=== PATIENT | female | born 1995 | race Caucasian/White ===

== ENCOUNTER 2017-08-31 14:54 | Emergency (ER) | payer BC ==
[2017-08-31] MEDS ORDERED: Ondansetron INJ* 2 MG/ML VIAL IV ONE (16:36)
[2017-08-31 16:48] LABS: Urine Appearance Cloudy; Urine Blood 2+ (Negative); Urine Color Yellow; Urine Ketones Negative (Negative); Urine Protein 2+(100 mg/dL) (Negative); Urine Specific Gravity 1.018 (1.010-1.030); Urine Urobilinogen Negative (Negative)
[2017-08-31] MEDS ORDERED: cefTRIAXone(*) 1 GM in NS 0.9% 50 ML* 50 ML IVPB ONE (16:50)
[2017-08-31 16:57] LABS: ABS Basophils 0 10^3/ul (0-0.2); ABS Eosinophils 0 10^3/ul (0-0.6); ABS Lymphocytes 1.5 10^3/ul (1.0-4.8); ABS Monocytes 0.8 10^3/ul (0-0.8); ABS Neutrophils 8.4 10^3/ul (1.5-7.7); ABS Nucleated RBC 0 10^3/ul; Eosinophil % 0.2 % (0-6); Hematocrit 42 % (35-47); Hemoglobin 14.4 g/dl (12.0-16.0); Lymphocyte % 13.5 % (25-47); Mean Corpuscular HGB Conc 34 g/dl (31-36); Mean Corpuscular Hemoglobin 30 pg (27-31); Mean Corpuscular Volume 89 fL (80-97); Mean Platelet Volume 8.8 um3 (7.4-10.4); Nucleated Red Blood Cells % 0.1; Platelet Count 185 10^3/ul (150-450); Red Blood Count 4.72 10^6/ul (4.0-5.4); Red Cell Distribution Width 13 % (10.5-15); White Blood Count 10.8 10^3/ul (3.5-10.8)
[2017-08-31] MEDS ORDERED: cefTRIAXone(*) 1 GM ADVAN/BAG ONE (17:00)
--- NOTE | 2017-08-31 17:01 | ED ---
GI/ HPI - HPI Summary HPI Summary: 22-year-old female presents with right flank pain for the past couple days. She denies any dysuria. She denies any hematuria urgency or frequency. She denies abdominal pain. She admits occasional nausea but denies any vomiting. She denies any diarrhea or constipation. She denies any vaginal discharge. She denies any pelvic pain. She denies any history of STDs. She denies any fevers. She denies any chest pressures or shortness of breath. - History of Current Complaint Chief Complaint: EDFlankPain Time Seen by Provider: 08/31/17 16:28 Stated Complaint: FLANK PAIN Pain Intensity: 10 - Allergy/Home Medications Allergies/Adverse Reactions: Allergies Allergy/AdvReac Type Severity Reaction Status Date / Time No Known Allergies Allergy Verified 08/31/17 15:00 PMH/Surg Hx/FS Hx/Imm Hx Endocrine/Hematology History: Denies: Hx Anticoagulant Therapy Respiratory History: Denies: Hx Asthma Infectious Disease History: No Infectious Disease History: Reports: Traveled Outside the [place] in Last 30 Days - Family History Known Family History: Negative: Renal Disease - Social History Alcohol Use: Rare Substance Use Type: Reports: None Smoking Status (MU): Never Smoked Tobacco Review of Systems Negative: Fever Negative: Chest Pain Negative: Shortness Of Breath Positive: Nausea. Negative: Abdominal Pain, Vomiting, Diarrhea Positive: flank pain All Other Systems Reviewed And Are Negative: Yes Physical Exam Triage Information Reviewed: Yes Vital Signs On Initial Exam: Initial Vitals Temp Pulse Resp BP Pulse Ox 98.2 F 90 16 123/81 98 08/31/17 14:58 08/31/17 14:58 08/31/17 14:58 08/31/17 14:58 08/31/17 14:58 Vital Signs Reviewed: Yes Appearance: Positive: Well-Appearing Skin: Positive: Warm, Dry Head/Face: Positive: Normal Head/Face Inspection Eyes: Positive: Normal, Conjunctiva Clear Respiratory/Lung Sounds: Positive: Clear to Auscultation, Breath Sounds Present Cardiovascular: Positive: Normal, RRR Abdomen Description: Positive: Nontender, Soft, CVA Tenderness (R) Bowel Sounds: Positive: Present Musculoskeletal: Positive: Normal Neurological: Positive: Normal Psychiatric: Positive: Normal Diagnostics - Vital Signs Vital Signs Temp Pulse Resp BP Pulse Ox 08/31/17 14:58 98.2 F 90 16 123/81 98 - Laboratory Lab Results: Lab Results 08/31/17 Range/Units 16:27 Urine Color Yellow Urine Appearance Cloudy Urine pH 5.0 (5-9) Ur Specific [place] 1.018 (1.010-1.030) Urine Protein 2+(100 mg/dl) A (Negative) Urine Ketones Negative (Negative) Urine Blood 2+ A (Negative) Urine Nitrate Positive A (Negative) Urine Bilirubin Negative (Negative) Urine Urobilinogen Negative (Negative) Ur Leukocyte Esterase 3+ A (Negative) Urine WBC (Auto) 3+(>20/hpf) A (Absent) Urine RBC (Auto) 2+(6-10/hpf) A (Absent) Ur Squamous Epith Cells Present A (Absent) Urine Bacteria 1+ A (Absent) Urine Glucose Negative (Negative) Result Diagrams: 08/31/17 16:45 08/31/17 16:45 Lab Statement: Any lab studies that have been ordered have been reviewed, and results considered in the medical decision making process. GIGU Course/Dx - Course Course Of Treatment: 22-year-old female presents with right flank pain for the past couple days. She denies any dysuria. She denies any hematuria urgency or frequency. She denies abdominal pain. She admits occasional nausea but denies any vomiting. She denies any diarrhea or constipation. She denies any vaginal discharge. She denies any pelvic pain. She denies any history of STDs. She denies any fevers. She denies any chest pressures or shortness of breath. on exam has tenderness right CVA. nontender abd. urine shows uti. renal u/s normal. gave dose of rocephin will treat with cipro. patient understand and agrees with plan. - Diagnoses Differential Diagnoses - Female: Pyelonephritis, Urinary Tract Infection, Ureteral Calculi Provider Diagnoses: Pyelonephritis Discharge - Sign-Out/Discharge Documenting (check all that apply): Discharge - Discharge Plan Condition: Good Disposition: HOME Prescriptions: Ciprofloxacin TAB* [Cipro 500 MG TAB*] 500 mg PO BID #27 tab Ondansetron ODT TAB* [Zofran 4 MG Odt TAB*] 4 mg PO Q6H PRN #12 tab.odt PRN Reason: Nausea Patient Education Materials: Kidney Infection (ED) Referrals: [facility] - Pawan QUINTEROS [Primary Care Provider] - Additional Instructions: Take antibiotic twice a day for 14 days, starting tomorrow Use Zofran every 6 hours for nausea as needed Drink plenty of water Use alternative forms of control Take Tylenol or ibuprofen every 6 hours as needed for pain and fever Return to ED if develop severe vomiting, or any new or worsening symptoms - Billing Disposition and Condition Condition: GOOD Disposition: HOME
[2017-08-31 17:20] LABS: EGFR Non-African American 108.5 (>60)
--- NOTE | 2017-08-31 17:36 | RAD ---
Indication: RIGHT flank pain. Comparison: No relevant prior exams available on the [facility] PACS for comparison. Technique: Renal ultrasound. Report: 10.6 x 4.2 x 5.8 cm RIGHT kidney. 11.1 x 5.1 x 5.1 cm LEFT kidney. Normal bilateral renal cortical echogenicity. No conspicuous stones, hydronephrosis, or focal renal lesions. IMPRESSION: Negative renal ultrasound.
[2017-08-31 17:39] VITALS: BP 126/79
--- NOTE | 2017-09-02 06:59 | PN ---
Progress Note - Progress Note Date of Service: 09/02/17 Note: Patient's urine culture grew Escherichia coli greater than 100,000. Patient was placed on Cipro at discharge. will wait for final culture for sensitivity.
--- NOTE | 2017-09-03 11:49 | ED ---
Progress - Progress Note Progress Note: Patient's final urine culture reveals greater than 100,000 Escherichia coli. Patient was discharged on ciprofloxacin to which organism is sensitive. No change in treatment at this time. Course/Dx - Course Course Of Treatment: 22-year-old female presents with right flank pain for the past couple days. She denies any dysuria. She denies any hematuria urgency or frequency. She denies abdominal pain. She admits occasional nausea but denies any vomiting. She denies any diarrhea or constipation. She denies any vaginal discharge. She denies any pelvic pain. She denies any history of STDs. She denies any fevers. She denies any chest pressures or shortness of breath. on exam has tenderness right CVA. nontender abd. urine shows uti. renal u/s normal. gave dose of rocephin will treat with cipro. patient understand and agrees with plan. - Diagnoses Provider Diagnoses: Pyelonephritis Discharge - Sign-Out/Discharge Documenting (check all that apply): Post-Discharge Follow Up - Discharge Plan Condition: Good Disposition: HOME Prescriptions: Ciprofloxacin TAB* [Cipro 500 MG TAB*] 500 mg PO BID #27 tab Ondansetron ODT TAB* [Zofran 4 MG Odt TAB*] 4 mg PO Q6H PRN #12 tab.odt PRN Reason: Nausea Patient Education Materials: Kidney Infection (ED) Referrals: [facility] - Pawan QUINTEROS [Primary Care Provider] - Additional Instructions: Take antibiotic twice a day for 14 days, starting tomorrow Use Zofran every 6 hours for nausea as needed Drink plenty of water Use alternative forms of control Take Tylenol or ibuprofen every 6 hours as needed for pain and fever Return to ED if develop severe vomiting, or any new or worsening symptoms - Billing Disposition and Condition Condition: GOOD Disposition: HOME
== END 2017-08-31 17:38 | disposition home or self-care (01) ==
LOC: ED 14:54
DX: N10 Acute pyelonephritis (principal); B96.20 Unspecified Escherichia coli [E. coli] as the cause of diseases classified elsewhere; R11.0 Nausea; Z32.02 Encounter for pregnancy test, result negative
CPT/HCPCS: 36415; 76775; 80053; 81003; 81015; 84702; 85025; 86141; 87077; 87086; 87186; 96365; 96375; 99282; J0696; J2405